=== PATIENT | female | born 1970 | race African-American/Black ===

== ENCOUNTER 2017-05-10 09:58 | Emergency (ER) | payer OTHER ==
[~2017-05-10] VITALS: Ht 165.1 cm; Wt 98.9 kg
--- NOTE | ~2017-05-10 | EKG ---
[place] [address] [facility] [employer] [place] [address] ELECTROCARDIOGRAM REPORT Name: CHINEDU HAMILTON Room #: [facility]#: [id number] Admission: 05/10/17 Attend Phys: Discharge: 05/10/17 Date of : 72 Report #: [id number] THIS REPORT FOR: //name// [facility] ED Test Date: 2017-05-10 Test Time: 10:15:42 Pat Name: CHINEDU HAMILTON Department: Room: Gender: F Printer [employer]: Dodie CALLE : 1970 Requested By: Roxie Gore Order Number: [id number] MD: Kelvin Cross Measurements Intervals [place] Rate: 60 P: 55 [place]: 160 QRS: 2 QRSD: 94 T: 12 QT: 427 QTc: 427 Interpretive Statements Sinus rhythm No significant abnormality Compared to ECG 09/04/2014 22:42:10 No significant changes Electronically Signed On 05-11-2017 7:45:20 CDT by Kelvin Cross [email or web address] <ELECTRONICALLY SIGNED> By: Kelvin Cross MD, [facility] 05/11/17 0745 1015 1015 Kelvin Cross MD, FACC /EPI
[~2017-05-10 09:58] MED LIST: ASPIRIN325 PO; BENADRYL25 MG PO; BENTYL20 MG PO; BIRTH CONTROL PILL; FLONASE 0.05%50 MCG NASAL; IBUPROFEN 600600 M1 PO; IBUPROFEN 800800 MG PO; LEVOXYL100 MCG PO; LEVOXYL125 MCG PO; MEDROLDOSEPACK PO; NORCO 5-325 TA1 EACH PO; PEPCID20 MG PO; PEPCID40 MG PO; THERAFLU FLU &1 EAC1 PO; TRAMADOL 50 MG50 MG PO; ZPAK PO
[2017-05-10] MEDS ORDERED: CLARITIN10 MG PO (10:09)
[2017-05-10] MEDS ORDERED: ZYRTEC10 M5 PO (10:09)
[2017-05-10] MEDS ORDERED: PEPCID20 MG PO (10:18)
[2017-05-10 10:39] LABS: HEMATOCRIT 34.9 % (37.0-47.0); MCH 32.3 pg (26.0-34.0); MCHC 34.4 g/dL (28.0-37.0); MCV 93.9 fL (80.0-100.0); PLATELET COUNT 240 thou/uL (150-400); RBC 3.72 mil/uL (4.20-5.00); RDW 14.2 % (10.5-14.5); WBC 5.2 thou/uL (4.0-11.0)
[2017-05-10 10:42] LABS: ANION GAP 4 mmol/L (7-16); BUN 13 mg/dL (7-18); CALCIUM 8.8 mg/dL (8.5-10.1); CHLORIDE 105 mmol/L (98-107); CO2 26 mmol/L (21-32); CREATININE 0.9 mg/dL (0.6-1.0); GLUCOSE 94 mg/dL (74-106); MANUAL DIFF YES; POTASSIUM 3.6 mmol/L (3.5-5.1); SODIUM 135 mmol/L (136-145)
[2017-05-10 10:51] LABS: TROPONIN-I < 0.04 ng/mL (<0.04-0.07)
[2017-05-10] MEDS ORDERED: CLONIDINE0.1 PO (11:19)
[2017-05-10 11:28] LABS: ABSOLUTE NEUTROPHILS 3.2 thou/uL (1.4-8.2); PLATELET ESTIMATE NORMAL; TOTAL CELL COUNT 100
[2017-05-10 12:16] VITALS: BP 154/80
== END 2017-05-10 12:23 | disposition home or self-care (01) ==
LOC: ER 09:58
PROVIDERS: Emergency Medicine
DX: I10 Essential (primary) hypertension (principal); R07.9 Chest pain, unspecified; R20.2 Paresthesia of skin; E03.9 Hypothyroidism, unspecified; Z90.49 Acquired absence of other specified parts of digestive tract; Z88.0 Allergy status to penicillin

== ENCOUNTER 2017-06-11 00:16 | Emergency (ER) | payer OTHER ==
[~2017-06-11] VITALS: Ht 165.1 cm; Wt 90.7 kg
[~2017-06-11 00:16] MED LIST changes: +CLARITIN10 MG PO; +CLONIDINE0.1 PO; +ZYRTEC10 M5 PO
[2017-06-11] MEDS ORDERED: AMLODIPINE BESY10 MG PO (00:25)
[2017-06-11] MEDS ORDERED: VALIUM5 MG PO (02:45)
[2017-06-11] MEDS ORDERED: NORCO 5-325 TA1 EACH PO (02:45)
[2017-06-11 02:59] VITALS: BP 134/68
== END 2017-06-11 03:00 | disposition home or self-care (01) ==
LOC: ER 00:16
DX: G97.1 Other reaction to spinal and lumbar puncture (principal); E03.9 Hypothyroidism, unspecified; Z98.890 Other specified postprocedural states; Z88.0 Allergy status to penicillin

== ENCOUNTER 2017-09-27 13:14 | Emergency (ER) | payer OTHER ==
[~2017-09-27] VITALS: Ht 165.1 cm; Wt 81.7 kg
[~2017-09-27 13:14] MED LIST changes: +AMLODIPINE BESY10 MG PO; +VALIUM5 MG PO
[2017-09-27] MEDS ORDERED: OSELB75 PO (14:16)
== END 2017-09-27 14:52 | disposition home or self-care (01) ==
LOC: ER 13:14
DX: J11.1 Influenza due to unidentified influenza virus with other respiratory manifestations (principal); E03.9 Hypothyroidism, unspecified; Z90.49 Acquired absence of other specified parts of digestive tract; Z88.0 Allergy status to penicillin

== ENCOUNTER 2018-02-12 23:46 | Emergency (ER) | payer OTHER ==
[~2018-02-12] VITALS: Ht 167.6 cm; Wt 90.7 kg
[~2018-02-12 23:46] MED LIST changes: +OSELB75 PO
[2018-02-13 00:32] LABS: HEMATOCRIT 36.4 % (37.0-47.0); HEMOGLOBIN 12.4 gm/dL (12.0-15.0); MCH 31.9 pg (26.0-34.0); MCHC 34.2 g/dL (28.0-37.0); MCV 93.3 fL (80.0-100.0); PLATELET COUNT 227 thou/uL (150-400); RDW 13.8 % (10.5-14.5); WBC 5.6 thou/uL (4.0-11.0)
[2018-02-13 00:41] LABS: CALCIUM 8.6 mg/dL (8.5-10.1); CREATININE 1.1 mg/dL (0.6-1.0); POTASSIUM 4.2 mmol/L (3.5-5.1)
[2018-02-13 01:09] LABS: ABSOLUTE NEUTROPHILS 3.4 thou/uL (1.4-8.2); LARGE PLATELETS RARE
[2018-02-13] MEDS ORDERED: MOBIC15 MG PO (02:15)
[2018-02-13 02:56] VITALS: BP 128/65
== END 2018-02-13 02:56 | disposition home or self-care (01) ==
LOC: ER 23:46
PROVIDERS: Emergency Medicine
DX: M79.1 Myalgia (principal); R60.0 Localized edema; E03.9 Hypothyroidism, unspecified; Z90.49 Acquired absence of other specified parts of digestive tract; Z88.0 Allergy status to penicillin

== ENCOUNTER 2018-09-30 00:05 | Emergency (ER) | payer OTHER ==
[~2018-09-30] VITALS: Ht 167.6 cm; Wt 96.2 kg
[~2018-09-30 00:05] MED LIST changes: +MOBIC15 MG PO
[2018-09-30] MEDS ORDERED: PROTONIX 20 MG20 M1 PO (00:22)
[2018-09-30 00:55] LABS: ABSOLUTE NEUTROPHILS 1.9 thou/uL (1.4-8.2); BASOPHILS 0.6 % (0.0-2.0); EOSINOPHILS 3.1 % (0.0-3.0); HEMATOCRIT 36.8 % (37.0-47.0); HEMOGLOBIN 12.8 gm/dL (12.0-15.0); MCH 33.1 pg (26.0-34.0); MCHC 34.8 g/dL (28.0-37.0); MCV 95.3 fL (80.0-100.0); MONOCYTES 11.2 % (1.0-8.0); PLATELET COUNT 221 thou/uL (150-400); POLYS 42.1 % (36.0-66.0); RBC 3.87 mil/uL (4.20-5.00); RDW 13.2 % (10.5-14.5); WBC 4.5 thou/uL (4.0-11.0)
[2018-09-30 01:05] LABS: ANION GAP 12 mmol/L (7-16); BUN 13 mg/dL (7-18); CALCIUM 9.3 mg/dL (8.5-10.1); CHLORIDE 103 mmol/L (98-107); CO2 25 mmol/L (21-32); GLUCOSE 126 mg/dL (74-106); POTASSIUM 3.5 mmol/L (3.5-5.1); SODIUM 140 mmol/L (136-145)
[2018-09-30 01:14] LABS: ALBUMIN 4.2 g/dL (3.4-5.0); SGOT 39 U/L (15-37); SGPT 53 U/L (30-65); TOTAL BILIRUBIN 0.4 mg/dL (<0.1-1.0); TROPONIN-I <0.06 ng/mL (<0.06)
[2018-09-30 01:25] VITALS: BP 135/67
--- NOTE | 2018-09-30 10:47 | EKG ---
[place] [address] [facility] [place] [address] ELECTROCARDIOGRAM REPORT Name: CHINEDU HAMILTON Room #: [facility]#: [id number] Admission: 09/30/18 Attend Phys: Discharge: 09/30/18 Date of : 72 Report #: [id number] THIS REPORT FOR: //name// [facility] ED Test Date: 2018-09-30 Test Time: 00:20:35 Pat Name: CHINEDU HAMILTON Department: Room: Gender: F Six Color Press Operator: URVASHI : 1970 Requested By: Jimmy Davis Order Number: [id number] MD: Dhruv Day Measurements Intervals [place] Rate: 63 P: 77 [place]: 184 QRS: 25 QRSD: 99 T: 3 QT: 500 QTc: 512 Interpretive Statements Sinus rhythm Nonspecific ST segment abnormalities Prolonged QT interval Compared to ECG 05/10/2017 10:15:42 T-wave abnormality now present Prolonged QT interval now present Electronically Signed On 09-30-2018 10:46:46 AUTO LEASING MANAGER by Dhruv Day [email or web address] <ELECTRONICALLY SIGNED> By: Dhruv Day MD 09/30/18 1046 0020 0020 Dhruv Day MD /ZULLY
== END 2018-09-30 01:26 | disposition home or self-care (01) ==
LOC: ER 00:05
PROVIDERS: Emergency Medicine
DX: R07.89 Other chest pain (principal); E03.9 Hypothyroidism, unspecified; Z90.49 Acquired absence of other specified parts of digestive tract; Z98.890 Other specified postprocedural states; Z88.0 Allergy status to penicillin

== ENCOUNTER 2019-03-09 22:09 | Emergency (ER) | payer OTHER ==
[~2019-03-09] VITALS: Ht 167.6 cm; Wt 113.4 kg
[~2019-03-09 22:09] MED LIST changes: +PROTONIX 20 MG20 M1 PO
[2019-03-09 22:54] LABS: HEMOGLOBIN 11.9 gm/dL (12.0-15.0); MCH 32.6 pg (26.0-34.0); MCHC 34.1 g/dL (28.0-37.0); MCV 95.6 fL (80.0-100.0); PLATELET COUNT 228 thou/uL (150-400); RBC 3.66 mil/uL (4.20-5.00); RDW 13.7 % (10.5-14.5); WBC 5.6 thou/uL (4.0-11.0)
[2019-03-09 23:03] LABS: ANION GAP 8 mmol/L (7-16); BUN 11 mg/dL (7-18); CALCIUM 8.4 mg/dL (8.5-10.1); CHLORIDE 103 mmol/L (98-107); CO2 29 mmol/L (21-32); CREATININE 0.8 mg/dL (0.6-1.0); GLUCOSE 93 mg/dL (74-106); POTASSIUM 3.6 mmol/L (3.5-5.1); SODIUM 140 mmol/L (136-145)
[2019-03-09 23:12] LABS: TROPONIN-I <0.06 ng/mL (<0.06)
[2019-03-09 23:34] LABS: ABSOLUTE NEUTROPHILS 2.5 thou/uL (1.4-8.2); ATYPICAL LYMPHS 1 %
[2019-03-10] MEDS ORDERED: MOBIC15 MG PO (00:19)
[2019-03-10 00:30] VITALS: BP 138/52
--- NOTE | 2019-03-11 18:19 | EKG ---
[place] [address] [facility] [place] [address] ELECTROCARDIOGRAM REPORT Name: CHINEDU HAMILTON Room #: [facility]#: [id number] ������������������ Admission: 03/09/19 ������������������ Attend Phys: Discharge: 03/10/19 ������������������ Date of : 72 Report #: [id number] ����������������������������������������������������������������� [id number] THIS REPORT FOR: //name// [facility] ED Test Date: 2019-03-09 Test Time: 22:22:55 Pat Name: CHINEDU HAMILTON Department: Room: Gender: F Postal Service Window Clerk: devonte : 1970 Requested By: Zabrina Loera Order Number: [id number] MD: Kelvin Cross Measurements Intervals [place] Rate: 73 P: 60 [place]: 178 QRS: 27 QRSD: 98 T: 28 QT: 429 QTc: 473 Interpretive Statements Sinus rhythm with occasional premature ventricular complexes Nonspecific ST and T wave abnormality No previous ECGs available for comparison Electronically Signed On 03-11-2019 18:18:53 CDT by Kelvin Cross [email or web address] ��������������������������������������������� <ELECTRONICALLY SIGNED> ���������������������������������������� By: Kelvin Cross MD, [facility] ��������������������������������������������� 03/11/198 21 21 Kelvin Cross MD, FACC /EPI
== END 2019-03-10 00:34 | disposition home or self-care (01) ==
LOC: ER 22:09
PROVIDERS: Emergency Medicine
DX: R07.89 Other chest pain (principal); E03.9 Hypothyroidism, unspecified; I10 Essential (primary) hypertension; E66.9 Obesity, unspecified; Z68.41 Body mass index [BMI] 40.0-44.9, adult; Z88.0 Allergy status to penicillin; Z90.49 Acquired absence of other specified parts of digestive tract; Z98.890 Other specified postprocedural states

== ENCOUNTER 2020-08-11 11:21 | Emergency (ER) | payer OTHER ==
[~2020-08-11] VITALS: Ht 165.1 cm; Wt 81.7 kg
[2020-08-11 11:22] VITALS: BP 142/80
[2020-08-11 11:48] LABS: ABSOLUTE NEUTROPHILS 2.2 thou/uL (1.4-8.2); BASOPHILS 1.1 % (0.0-2.0); EOSINOPHILS 1.5 % (0.0-3.0); HEMATOCRIT 38.7 % (37.0-47.0); HEMOGLOBIN 12.9 gm/dL (12.0-15.0); LYMPHOCYTES 35.5 % (24.0-44.0); MCH 31.9 pg (26.0-34.0); MCHC 33.4 g/dL (28.0-37.0); MCV 95.3 fL (80.0-100.0); MONOCYTES 12.9 % (1.0-8.0); PLATELET COUNT 303 thou/uL (150-400); RBC 4.06 mil/uL (4.20-5.00); RDW 14.1 % (10.5-14.5); WBC 4.6 thou/uL (4.0-11.0)
[2020-08-11 11:59] LABS: ANION GAP 12 mmol/L (7-16); BUN 11 mg/dL (7-18); CALCIUM 9.4 mg/dL (8.5-10.1); CHLORIDE 102 mmol/L (98-107); CO2 26 mmol/L (21-32); GLUCOSE 122 mg/dL (74-106); POTASSIUM 3.7 mmol/L (3.5-5.1); SODIUM 140 mmol/L (136-145)
[2020-08-11 12:08] LABS: SGOT 28 U/L (15-37); SGPT 42 U/L (30-65); TOTAL BILIRUBIN 0.4 mg/dL (0.2-1.0); TOTAL PROTEIN 7.6 g/dL (6.4-8.2); TROPONIN-I <0.06 ng/mL (<0.06)
--- NOTE | 2020-08-11 13:25 | EKG ---
[address] [place] [address] ELECTROCARDIOGRAM REPORT Name: CHINEDU HAMILTON Room #: [facility].#: [id number] Admission: Attend Phys: Discharge: Date of : 72 Report #: [id number] [facility] ED Test Date: 2020-08-11 Test Time: 11:25:06 Pat Name: CHINEDU HAMILTON Department: Room: Gender: F Forming Tube Selector: ANGÉLICA : 1970 Requested By: Latonia Brewster Order Number: [id number] MD: Chance Pickett Measurements Intervals [place] Rate: 73 P: 81 [place]: 164 QRS: 24 QRSD: 91 T: 17 QT: 402 QTc: 443 Interpretive Statements Sinus rhythm Borderline T abnormalities, anterior leads Baseline wander in lead(s) V3,V4,V5,V6 Compared to ECG 03/09/2019 22:22:55 T-wave abnormality now present Ventricular premature complex(es) no longer present ST (T wave) deviation no longer present Electronically Signed On 08-11-2020 13:24:54 ROLLING MILL PLUGGER by Chance Pickett [email or web address] <ELECTRONICALLY SIGNED> By: Chance Pickett MD, FAC 08/11/20 1324 1125 1125 Chance Pickett MD, [facility] /EPI
== END 2020-08-11 13:27 | disposition home or self-care (01) ==
LOC: ER 11:21
PROVIDERS: Emergency Medicine
DX: R07.89 Other chest pain (principal); I10 Essential (primary) hypertension; E78.5 Hyperlipidemia, unspecified; K21.9 Gastro-esophageal reflux disease without esophagitis; E03.9 Hypothyroidism, unspecified; Z90.49 Acquired absence of other specified parts of digestive tract; Z98.890 Other specified postprocedural states; Z79.899 Other long term (current) drug therapy; Z88.0 Allergy status to penicillin

== ENCOUNTER 2021-01-14 12:00 | Emergency (ER) | payer OTHER ==
[~2021-01-14] VITALS: Ht 165.1 cm; Wt 95.3 kg
--- NOTE | 2021-01-14 12:27 | EKG ---
[address] [place] [address] ELECTROCARDIOGRAM REPORT Name: CHINEDU HAMILTON Room #: [facility].#: [id number] Admission: Attend Phys: Discharge: Date of : 72 Report #: [id number] [facility] ED Test Date: 2021-01-14 Test Time: 12:04:58 Pat Name: CHINEDU HAMILTON Department: Room: Gender: F Senior Analyst Programmer: : 1970 Requested By: Dwight Rodríguez Order Number: [id number] MD: Chance Pickett Measurements Intervals [place] Rate: 67 P: 45 [place]: 172 QRS: -2 QRSD: 95 T: 10 QT: 538 QTc: 568 Interpretive Statements Sinus rhythm Borderline T abnormalities, anterior leads Prolonged QT interval Compared to ECG 08/11/2020 11:25:06 Prolonged QT interval now present T-wave abnormality still present Electronically Signed On 01-14-2021 12:26:57 CDT by Chance Pickett [email or web address] <ELECTRONICALLY SIGNED> By: Chance Pickett MD, [facility] 01/14/21 1226 1204 1204 Chance Pickett MD, FACC /EPI
[2021-01-14 12:28] LABS: ABSOLUTE NEUTROPHILS 2.5 thou/uL (1.4-8.2); BASOPHILS 1.6 % (0.0-2.0); EOSINOPHILS 1.4 % (0.0-3.0); HEMATOCRIT 37.9 % (37.0-47.0); HEMOGLOBIN 12.9 gm/dL (12.0-15.0); LYMPHOCYTES 37.2 % (24.0-44.0); MCH 32.8 pg (26.0-34.0); MCHC 34.1 g/dL (28.0-37.0); MCV 96.1 fL (80.0-100.0); MONOCYTES 11.8 % (1.0-8.0); PLATELET COUNT 297 thou/uL (150-400); RBC 3.94 mil/uL (4.20-5.00); RDW 13.9 % (10.5-14.5); WBC 5.2 thou/uL (4.0-11.0)
[2021-01-14 12:34] LABS: ANION GAP 10 mmol/L (7-16); BUN 15 mg/dL (7-18); CALCIUM 8.9 mg/dL (8.5-10.1); CHLORIDE 106 mmol/L (98-107); CO2 25 mmol/L (21-32); GLUCOSE 100 mg/dL (74-106); POTASSIUM 4.1 mmol/L (3.5-5.1); SODIUM 141 mmol/L (136-145)
[2021-01-14 12:44] LABS: TROPONIN-I <0.06 ng/mL (<0.06)
[2021-01-14 13:35] LABS: ALBUMIN 4.1 g/dL (3.4-5.0); DIRECT BILIRUBIN < 0.1 mg/dL (<0.1-0.2); LIPASE 172 U/L (73-393); SGOT 38 U/L (15-37); SGPT 36 U/L (14-59); TOTAL BILIRUBIN 0.3 mg/dL (0.2-1.0); TOTAL PROTEIN 8.5 g/dL (6.4-8.2)
[2021-01-14 14:00] VITALS: BP 133/77
== END 2021-01-14 14:02 | disposition home or self-care (01) ==
LOC: ER 12:00
PROVIDERS: Emergency Medicine; Nurse Practitioner
DX: R07.89 Other chest pain (principal); R10.9 Unspecified abdominal pain; R22.42 Localized swelling, mass and lump, left lower limb; I10 Essential (primary) hypertension; E03.9 Hypothyroidism, unspecified; Z90.49 Acquired absence of other specified parts of digestive tract; Z98.890 Other specified postprocedural states; Z88.0 Allergy status to penicillin

== ENCOUNTER 2021-06-14 07:54 | Emergency (ER) | payer OTHER ==
[~2021-06-14] VITALS: Ht 167.6 cm; Wt 101.6 kg
[2021-06-14] MEDS ORDERED: ATORVASTATIN CA20 MG PO (08:08)
[2021-06-14 08:34] LABS: ABSOLUTE NEUTROPHILS 1.7 thou/uL (1.4-8.2); BASOPHILS 1.2 % (0.0-2.0); EOSINOPHILS 2.4 % (0.0-3.0); HEMATOCRIT 39.7 % (37.0-47.0); HEMOGLOBIN 13.1 gm/dL (12.0-15.0); LYMPHOCYTES 39.4 % (24.0-44.0); MCH 31.1 pg (26.0-34.0); MCHC 32.9 g/dL (28.0-37.0); MCV 94.4 fL (80.0-100.0); MONOCYTES 13.8 % (1.0-8.0); PLATELET COUNT 231 thou/uL (150-400); POLYS 43.2 % (36.0-66.0); RBC 4.21 mil/uL (4.20-5.00); RDW 13.8 % (10.5-14.5)
[2021-06-14 08:47] LABS: CALCIUM 8.7 mg/dL (8.5-10.1); CREATININE 0.9 mg/dL (0.6-1.0); POTASSIUM 3.9 mmol/L (3.5-5.1)
[2021-06-14 08:57] LABS: TOTAL BILIRUBIN 0.5 mg/dL (0.2-1.0); TOTAL PROTEIN 7.6 g/dL (6.4-8.2)
[2021-06-14] MEDS ORDERED: FLEXERIL PO (09:40)
[2021-06-14] MEDS ORDERED: MEDROLDOSEPACK PO (09:40)
[2021-06-14 09:44] VITALS: BP 125/74
--- NOTE | 2021-06-14 13:33 | EKG ---
[place] [address] [place] [address] ELECTROCARDIOGRAM REPORT Name: CHINEDU HAMILTON Room #: [facility]#: [id number] Admission: 06/14/21 Attend Phys: Discharge: 06/14/21 Date of : [birth year] Report #: [id number] [facility] ED Test Date: 2021-06-14 Test Time: 08:17:26 Pat Name: CHINEDU HAMILTON Department: Room: Gender: F Ammonia Print Operator: Demarcus Ye : 1970 Requested By: Rashad Casey Order Number: [id number] MD: Kelvin Cross Measurements Intervals [place] Rate: 66 P: 41 [place]: 169 QRS: 5 QRSD: 106 T: 20 QT: 435 QTc: 456 Interpretive Statements Sinus rhythm Nonspecific T wave abnormality Compared to ECG 01/14/2021 12:04:58 Prolonged QT interval no longer present Electronically Signed On 06-14-2021 13:33:07 CDT by Kelvin Cross [email or web address] <ELECTRONICALLY SIGNED> By: Kelvin Cross MD, [facility] 06/14/21 1333 0817 6 Kelvin Cross MD, FACC /EPI
== END 2021-06-14 09:44 | disposition home or self-care (01) ==
LOC: ER 07:54
PROVIDERS: Emergency Medicine
DX: M54.6 Pain in thoracic spine (principal); M54.2 Cervicalgia; E03.9 Hypothyroidism, unspecified; I10 Essential (primary) hypertension; Z90.49 Acquired absence of other specified parts of digestive tract; Z98.890 Other specified postprocedural states; Z79.899 Other long term (current) drug therapy; Z88.0 Allergy status to penicillin

== ENCOUNTER 2021-08-14 13:16 | Emergency (ER) | payer OTHER ==
[~2021-08-14] VITALS: Ht 165.1 cm; Wt 99.8 kg
[~2021-08-14 13:16] MED LIST changes: +ATORVASTATIN CA20 MG PO; +FLEXERIL PO
[2021-08-14 15:29] VITALS: BP 120/70
--- NOTE | 2021-08-17 07:14 | EKG ---
[place] [address] [facility] [place] [address] ELECTROCARDIOGRAM REPORT Name: CHINEDU HAMILTON Room #: [facility]#: [id number] Admission: 08/14/21 Attend Phys: Discharge: 08/14/21 Date of : 72 Report #: [id number] [facility] ED Test Date: 2021-08-14 Test Time: 14:45:57 Pat Name: CHINEDU HAMILTON Department: Room: Gender: F Tube Winder: Daniel : 1970 Requested By: Rashad Casey Order Number: [id number] MD: Chance Pickett Measurements Intervals [place] Rate: 66 P: 57 [place]: 168 QRS: 6 QRSD: 95 T: 3 QT: 420 QTc: 441 Interpretive Statements Sinus rhythm Compared to ECG 06/14/2021 08:17:26 T-wave abnormality no longer present Electronically Signed On 08-17-2021 7:14:43 FUEL HANDLER by Chance Pickett [email or web address] <ELECTRONICALLY SIGNED> By: Chance Pickett MD, [facility] 08/17/21 0714 1445 1445 Chance Pickett MD, FACC /EPI
== END 2021-08-14 15:36 | disposition home or self-care (01) ==
LOC: ER 13:16
DX: R06.00 Dyspnea, unspecified (principal); I10 Essential (primary) hypertension; E03.9 Hypothyroidism, unspecified; Z90.49 Acquired absence of other specified parts of digestive tract; Z98.890 Other specified postprocedural states; Z79.899 Other long term (current) drug therapy; Z88.0 Allergy status to penicillin